=== PATIENT | male | born 1985 | race Two or more races ===

== ENCOUNTER 2017-05-25 14:29 | Emergency (ER) | payer OTHER ==
[~2017-05-25] VITALS: Ht 167.6 cm; Wt 74.3 kg
[2017-05-25 14:31] VITALS: BP 147/84
[2017-05-25] MEDS ORDERED: AZITHROMYCIN 500 MG TABLET PO ONE (15:00)
[2017-05-25] MEDS ORDERED: CEFTRIAXONE 250 MG IM ONE (15:00)
[2017-05-25] MEDS ORDERED: AZITHROMYCIN 500 MG TABLET ONE (15:31)
[2017-05-25] MEDS ORDERED: CEFTRIAXONE 250 MG ONE (15:31)
== END 2017-05-25 16:03 | disposition home or self-care (01) ==
LOC: ED 15:45
DX: Z20.2 Contact with and (suspected) exposure to infections with a predominantly sexual mode of transmission (principal); A60.00 Herpesviral infection of urogenital system, unspecified; F12.10 Cannabis abuse, uncomplicated
CPT/HCPCS: 87491; 87591; 96372; 99284; J0696